=== PATIENT | female | born 2000 | race African-American/Black ===

== ENCOUNTER 2021-04-16 23:01 | Inpatient (IN) ==
[2021-04-16 23:15] VITALS: BMI 28.8
[2021-04-16] MEDS ORDERED: STADOL INJ IVP PRN (23:35)
[2021-04-16 23:42] LABS: BILIRUBIN,URINE NEGATIVE (NEGATIVE); BLOOD/HEMOGLOBIN,URINE 2+ (NEGATIVE); GLUCOSE, URINE NEGATIVE (NEGATIVE); KETONES,URINE NEGATIVE (NEGATIVE); LEUKOCYTE ESTERASE ,URINE NEGATIVE (NEGATIVE); NITRITES,URINE NEGATIVE (NEGATIVE); PROTEIN,URINE 2+ (NEGATIVE); UROBILINOGEN,URINE 2+ (NORMAL)
[2021-04-16] MEDS ORDERED: REGLAN INJ 10 MG VIAL IVP PRN (23:44)
[2021-04-16] MEDS ORDERED: PHENERGAN INJ 25 MG IM PRN (23:44)
[2021-04-16] MEDS ORDERED: D5 LR + PITOCIN 10 UNITS/L 10 UNITS/1,000 ML BAG IV PRN (23:44)
[2021-04-16] MEDS ORDERED: PITOCIN IVP ONE (23:44)
[2021-04-16] MEDS ORDERED: D5 1/2 NS 1,000 ML 1,000 ML IV SCH (23:45)
[2021-04-16] MEDS ORDERED: AMPICILLIN VIAL 2 GRAM 2 G in NS 100 ML IV + SPIKE MINIBAG* 100 ML IV SCH (23:45)
[2021-04-16 23:48] LABS: HEMOGLOBIN 10.2 g/dL (12.0-16.0)
[2021-04-16 23:53] LABS: BASOPHILS % (AUTO) 0.4 % (0.2-1.0); EOSINOPHILS % (AUTO) 0.4 % (0.9-2.9); HEMATOCRIT 31.1 % (36.0-47.0); LYMPHOCYTES # (AUTO) 1.9 X10^3/uL (1.3-2.9); LYMPHOCYTES % (AUTO) 16.3 % (21.0-51.0); MEAN CORPUSCULAR HEMOGLOBIN 24.8 pg (27.0-34.0); MEAN CORPUSCULAR HGB CONC 32.9 g/dL (33.0-35.0); MEAN CORPUSCULAR VOLUME 75.4 fL (80.0-100.0); MONOCYTES # (AUTO) 0.6 x10^3/uL (0.3-0.8); MONOCYTES % (AUTO) 5.7 % (0.0-13.0); NEUTROPHILS # (AUTO) 8.8 x10^3/uL (2.2-4.8); NEUTROPHILS % (AUTO) 77.2 % (42.0-75.0); PLATELET COUNT 390 X10^3/uL (150.0-450.0); RED BLOOD COUNT 4.13 X10^6/uL (3.5-5.4); RED CELL DISTRIBUTION WIDTH 14.9 % (11.6-16.5); WHITE BLOOD COUNT 11.4 X10^3/uL (3.6-10.0)
[2021-04-16 23:55] LABS: ALANINE AMINOTRANSFERASE 54 Units/L (12-78); ALBUMIN 2.3 g/dL (3.4-5.0); ALKALINE PHOSPHATASE 179 Units/L (46-116); ASPARTATE AMINO TRANSFERASE 26 Units/L (15-37); BLOOD UREA NITROGEN 11 mg/dL (7-18); CALCIUM 9.1 mg/dL (8.5-10.1); CHLORIDE 102 mmol/L (98-107); COR CA(FOR HYPOALB) 10.5 mg/dL (8.5-10.1); COR NA(FOR HYPERGLY) 136 mmol/L (136-145); CREATININE 0.67 mg/dL (0.55-1.02); SODIUM 136 mmol/L (136-145); TOTAL PROTEIN 7.3 g/dL (6.4-8.2); eGFR NON BLACK RACES > 60 (>60)
[2021-04-16 23:58] LABS: APPEARANCE,URINE CLEAR (CLEAR); BACTERIA,URINE TRACE /HPF (NEGATIVE); COLOR,URINE YELLOW (YELLOW); MUCUS,URINE FEW /HPF (NEGATIVE); SQUAMOUS EPITHELIAL CELL,UR FEW /HPF (NEGATIVE)
[2021-04-16 23:59] LABS: AMNISURE ROM TEST THERE IS A RUPTURE (NO RUPTURE)
[2021-04-17] MEDS ORDERED: PITOCIN ONE (00:08)
[2021-04-17] MEDS ORDERED: BETADINE SOLN ONE (00:08)
[2021-04-17] MEDS ORDERED: D5 1/2 NS 1,000 ML 1,000 ML IV ONE (00:08)
[2021-04-17] MEDS ORDERED: AMPICILLIN VIAL 2 GRAM ONE (00:37)
[2021-04-17] MEDS ORDERED: NS 100 ML IV 100 ML ONE ×2 (00:37→04:05)
[2021-04-17] MEDS ORDERED: STADOL INJ ONE ×2 (01:49→04:43)
[2021-04-17] MEDS ORDERED: PHENERGAN INJ 25 MG IM ONE (03:31)
[2021-04-17] MEDS ORDERED: AMPICILLIN VIAL 1 GRAM ONE (04:05)
[2021-04-17] MEDS ORDERED: XYLOCAINE 1 % (PLAIN) ONE (07:04)
[2021-04-17] MEDS ORDERED: PHENERGAN INJ 25 MG IM PRN ×2 (07:24→07:30)
[2021-04-17] MEDS ORDERED: MOTRIN TAB 800 MG PO PRN (07:30)
--- NOTE | 2021-04-17 07:39 | DR.OB ---
OB Quick Note - Assessment/Plan Assessment/Plan: Delivery Note MENTAL HEALTH ORDERLY 04/17/21 at 6:57am Patient complete and pushing. Head delivered over intact perineum. No nuchal cord. Nose and mouth bulb suctioned. Body delivered over intact perineum. Cord clamped x 2 and cut. handed to attendants. Cord sent for gases. Placenta delivered spontaneously / intact / 3 vessel cord. No CVX tears noted. A small midline second degree tear noted and repaired with 0-vicryl in usual fashion. Viable male infant, VTX/LOT, wt=6'15" and 9/9, stable to NBN. Mother stable to RR. DGQ=141se.
[2021-04-17] MEDS ORDERED: D5 1/2 NS 1,000 ML 1,000 ML with PITOCIN 20 UNITS IV SCH ×2 (08:00)
[2021-04-17] MEDS ORDERED: DERMOPLAST PAIN RELIEF SPRAY TOP PRN (08:11)
[2021-04-17] MEDS ORDERED: MILK OF MAGNESIA PO PRN (08:11)
[2021-04-17] MEDS ORDERED: AMBIEN PO PRN (08:11)
[2021-04-17] MEDS ORDERED: ADACEL or BOOSTRIX TDaP VACCINE IM ONE (08:11)
[2021-04-17] MEDS: PRENATAL PLUS PO SCH (09:55)
[2021-04-17] MEDS: D5 1/2 NS 1,000 ML 1,000 ML with PITOCIN 20 UNITS IV SCH ×4 (09:57→18:05)
[2021-04-17] MEDS: MOTRIN TAB 800 MG PO PRN (18:08)
[2021-04-18 05:59] LABS: HEMATOCRIT 29.3 % (36.0-47.0); HEMOGLOBIN 9.5 g/dL (12.0-16.0)
[2021-04-18] MEDS: D5 1/2 NS 1,000 ML 1,000 ML with PITOCIN 20 UNITS IV SCH ×4 (08:05→09:25)
[2021-04-18] MEDS: MOTRIN TAB 800 MG PO PRN (09:25)
[2021-04-18] MEDS: PRENATAL PLUS PO SCH (09:25)
[2021-04-18 13:55] VITALS: BP 102/59
== END 2021-04-18 15:00 | disposition home or self-care (01) | DRG 807 ==
LOC: ER 23:01 → LD 23:35 → MED/SURG 04-17 08:13
PROVIDERS: ADMIT Specialist; ATTEND Specialist

== ENCOUNTER 2022-07-30 19:17 | Inpatient (IN) ==
[2022-07-30 19:39] VITALS: BMI 28.3
[2022-07-30 19:39] LABS: BILIRUBIN,URINE NEGATIVE (NEGATIVE); BLOOD/HEMOGLOBIN,URINE 2+ (NEGATIVE); GLUCOSE, URINE NEGATIVE (NEGATIVE); KETONES,URINE NEGATIVE (NEGATIVE); LEUKOCYTE ESTERASE ,URINE 3+ (NEGATIVE); NITRITES,URINE NEGATIVE (NEGATIVE); PROTEIN,URINE 3+ (NEGATIVE); UROBILINOGEN,URINE 1+ (NORMAL)
[2022-07-30 19:40] LABS: APPEARANCE,URINE HAZY (CLEAR); COLOR,URINE YELLOW (YELLOW)
[2022-07-30 19:41] LABS: AMNISURE ROM TEST THERE IS A RUPTURE (NO RUPTURE)
[2022-07-30] MEDS ORDERED: STADOL INJ IVP PRN (19:42)
[2022-07-30] MEDS ORDERED: D5 LR + PITOCIN 10 UNITS/L 10 UNITS/1,000 ML BAG IV PRN (19:42)
[2022-07-30] MEDS ORDERED: PITOCIN IVP ONE (19:42)
[2022-07-30] MEDS ORDERED: REGLAN INJ 10 MG VIAL IVP PRN (19:42)
[2022-07-30] MEDS ORDERED: ZITHROMAX IV SCH (19:47)
[2022-07-30] MEDS ORDERED: NS IV SCH (19:47)
[2022-07-30 20:00] LABS: BACTERIA,URINE 1+ /HPF (NEGATIVE); HYALINE CASTS, URINE FEW /LPF (NEGATIVE); SQUAMOUS EPITHELIAL CELL,UR NUMEROUS /HPF (NEGATIVE)
[2022-07-30] MEDS ORDERED: D5 1/2 NS 1,000 ML 1,000 ML IV SCH (20:00)
[2022-07-30 20:10] LABS: BASOPHILS # (AUTO) 0.1 X10^3/uL (0.0-0.1); BASOPHILS % (AUTO) 1.1 % (0.2-1.0); EOSINOPHILS # (AUTO) 0.1 x10^3/uL (0.0-0.2); EOSINOPHILS % (AUTO) 0.6 % (0.9-2.9); HEMATOCRIT 31.8 % (36.0-47.0); HEMOGLOBIN 10.9 g/dL (12.0-16.0); LYMPHOCYTES # (AUTO) 1.7 X10^3/uL (1.3-2.9); LYMPHOCYTES % (AUTO) 16.9 % (21.0-51.0); MEAN CORPUSCULAR HEMOGLOBIN 28.4 pg (27.0-34.0); MEAN CORPUSCULAR HGB CONC 34.3 g/dL (33.0-35.0); MEAN CORPUSCULAR VOLUME 82.8 fL (80.0-100.0); MEAN PLATELET VOLUME 7.2 fL (7.4-11.0); MONOCYTES # (AUTO) 0.7 x10^3/uL (0.3-0.8); MONOCYTES % (AUTO) 6.7 % (0.0-13.0); NEUTROPHILS # (AUTO) 7.7 x10^3/uL (2.2-4.8); NEUTROPHILS % (AUTO) 74.7 % (42.0-75.0); RED BLOOD COUNT 3.84 X10^6/uL (3.5-5.4); RED CELL DISTRIBUTION WIDTH 13.6 % (11.6-16.5); WHITE BLOOD COUNT 10.3 X10^3/uL (3.6-10.0)
[2022-07-30 20:14] LABS: BLOOD UREA NITROGEN 11 mg/dL (7-18); CALCIUM 8.6 mg/dL (8.5-10.1); CARBON DIOXIDE 23.2 mmol/L (21-32); CHLORIDE 103 mmol/L (98-107); CREATININE 0.57 mg/dL (0.55-1.02); SODIUM 137 mmol/L (136-145); eGFR NON BLACK RACES > 60 (>60)
[2022-07-30 20:30] LABS: PLATELET MORPHOLOGY COMMENT NORMAL (NORMAL)
[2022-07-30] MEDS ORDERED: ZOFRAN INJ 4 MG VIAL IVP ONE (20:32)
[2022-07-30] MEDS ORDERED: MOTRIN TAB 800 MG PO PRN (23:33)
[2022-07-30] MEDS ORDERED: D5 1/2 NS 1,000 ML 1,000 ML with PITOCIN 20 UNITS IV SCH ×2 (23:45)
[2022-07-31] MEDS ORDERED: AMBIEN PO PRN (00:04)
[2022-07-31] MEDS ORDERED: MILK OF MAGNESIA PO PRN (00:04)
[2022-07-31] MEDS ORDERED: MOTRIN TAB 800 MG PO PRN (00:04)
[2022-07-31] MEDS ORDERED: DERMOPLAST PAIN RELIEF SPRAY TOP PRN (00:04)
[2022-07-31 05:07] LABS: HEMATOCRIT 32.5 % (36.0-47.0)
[2022-07-31] MEDS: PRENATAL PLUS PO SCH (08:31)
[2022-08-01 08:13] VITALS: BP 114/68
[2022-08-01] MEDS: PRENATAL PLUS PO SCH (08:35)
== END 2022-08-01 10:00 | disposition home or self-care (01) | DRG 807 ==
LOC: ER 19:17 → LD 19:41 → MED/SURG 07-31 00:06
PROVIDERS: ADMIT Obstetrics & Gynecology Obstetrics; ATTEND Obstetrics & Gynecology Obstetrics
DX: O26.893 Other specified pregnancy related conditions, third trimester; Z37.0 Single live birth; O71.82 Other specified trauma to perineum and vulva; O70.0 First degree perineal laceration during delivery; Z3A.38 38 weeks gestation of pregnancy

== ENCOUNTER 2024-07-20 07:08 | Inpatient (IN) ==
[2024-07-20 07:34] VITALS: BMI 26.9
[2024-07-20] MEDS ORDERED: OXYTOCIN 20 UNIT/1,000 ML-NS 20 UNIT/1,000 ML PLAST..BAG IV PRN ×2 (07:42→07:55)
[2024-07-20] MEDS ORDERED: REGLAN INJ 10 MG VIAL IVP PRN (07:42)
[2024-07-20] MEDS ORDERED: ZOFRAN INJ 4 MG VIAL IVP PRN (07:42)
[2024-07-20 07:57] LABS: BILIRUBIN,URINE NEGATIVE (NEGATIVE); BLOOD/HEMOGLOBIN,URINE 5+ (NEGATIVE); GLUCOSE, URINE NEGATIVE (NEGATIVE); KETONES,URINE NEGATIVE (NEGATIVE); LEUKOCYTE ESTERASE ,URINE 1+ (NEGATIVE); NITRITES,URINE NEGATIVE (NEGATIVE); PROTEIN,URINE 2+ (NEGATIVE); UROBILINOGEN,URINE 1+ (NORMAL)
[2024-07-20 07:58] LABS: APPEARANCE,URINE CLEAR (CLEAR); COLOR,URINE YELLOW (YELLOW)
[2024-07-20] MEDS: AMPICILLIN VIAL 2 GRAM ONE (08:00)
[2024-07-20] MEDS: LR 1,000 ML IV 1,000 ML IV SCH (08:00)
[2024-07-20] MEDS: NS 100 ML IV 100 ML ONE ×2 (08:00→12:00)
[2024-07-20 08:01] LABS: AMNISURE ROM TEST THERE IS A RUPTURE (NO RUPTURE)
[2024-07-20 08:04] LABS: RBC,URINE 20-30 /HPF (0-3)
[2024-07-20 08:05] LABS: BACTERIA,URINE NEGATIVE /HPF (NEGATIVE); SQUAMOUS EPITHELIAL CELL,UR FEW /HPF (NEGATIVE)
[2024-07-20 08:22] LABS: BASOPHILS # (AUTO) 0.1 X10^3/uL (0.0-0.1); BASOPHILS % (AUTO) 0.9 % (0.2-1.0); EOSINOPHILS # (AUTO) 0.1 x10^3/uL (0.0-0.2); EOSINOPHILS % (AUTO) 0.8 % (0.9-2.9); HEMATOCRIT 33.1 % (36.0-47.0); HEMOGLOBIN 11.3 g/dL (12.0-16.0); LYMPHOCYTES # (AUTO) 2.1 X10^3/uL (1.3-2.9); LYMPHOCYTES % (AUTO) 15.8 % (21.0-51.0); MEAN CORPUSCULAR HEMOGLOBIN 29.5 pg (27.0-34.0); MEAN CORPUSCULAR VOLUME 86.7 fL (80.0-100.0); MEAN PLATELET VOLUME 7.1 fL (7.4-11.0); MONOCYTES # (AUTO) 0.7 x10^3/uL (0.3-0.8); NEUTROPHILS # (AUTO) 10.4 x10^3/uL (2.2-4.8); NEUTROPHILS % (AUTO) 77.5 % (42.0-75.0); PLATELET COUNT 272 X10^3/uL (150.0-450.0); RED BLOOD COUNT 3.82 X10^6/uL (3.5-5.4); RED CELL DISTRIBUTION WIDTH 12.8 % (11.6-16.5); WHITE BLOOD COUNT 13.5 X10^3/uL (3.6-10.0)
[2024-07-20 08:26] LABS: BLOOD UREA NITROGEN 6 mg/dL (7-18); CALCIUM 8.7 mg/dL (8.5-10.1); CARBON DIOXIDE 23.5 mmol/L (21-32); CHLORIDE 104 mmol/L (98-107); CREATININE 0.52 mg/dL (0.55-1.02); GLUCOSE 77 mg/dL (65-99); POTASSIUM 3.6 mmol/L (3.5-5.1); SODIUM 136 mmol/L (136-145); eGFR NON BLACK RACES > 60 (>60)
[2024-07-20] MEDS: LR 1,000 ML IV 1,000 ML IV ONE (09:14)
[2024-07-20] MEDS: NUBAIN INJ 20 MG AMP IVP PRN (09:45)
[2024-07-20] MEDS: PITOCIN ONE (09:59)
[2024-07-20] MEDS: NUBAIN INJ 10 MG AMP ONE (09:59)
[2024-07-20] MEDS: AMPICILLIN VIAL 1 GRAM ONE (12:00)
[2024-07-20] MEDS: OXYTOCIN 20 UNIT/1,000 ML-NS 20 UNIT/1,000 ML PLAST..BAG IV SCH ×2 (12:11→14:15)
[2024-07-20] MEDS: PITOCIN IVP ONE (12:11)
[2024-07-20] MEDS: BETADINE SOLN ONE (12:19)
[2024-07-21] MEDS: MOTRIN TAB 800 MG PO PRN (05:16)
[2024-07-21 05:48] LABS: HEMOGLOBIN 10.4 g/dL (12.0-16.0)
[2024-07-21 13:55] VITALS: RESP 17
[2024-07-21 14:01] VITALS: BP 104/51; PULSE 84; TEMP 98.3; O2SAT 98
== END 2024-07-21 16:00 | disposition home or self-care (01) | DRG 807 ==
LOC: ER 07:08 → LD 07:42 → MED/SURG 13:56
PROVIDERS: ADMIT Obstetrics & Gynecology Obstetrics; ATTEND Obstetrics & Gynecology Obstetrics